=== PATIENT | male | born 1995 | race Caucasian/White ===

== ENCOUNTER 2021-11-26 18:21 | Emergency (ER) | payer MEDICAID ==
[~2021-11-26] VITALS: Ht 172.7 cm; Wt 73.0 kg
[2021-11-26] MEDS ORDERED: IBUPROFEN 400MG TABLET PO ONE (18:45)
[2021-11-26] MEDS ORDERED: IBUP-2028 MT (19:30)
[2021-11-26 19:53] VITALS: BP 134/82
== END 2021-11-26 20:00 | disposition home or self-care (01) ==
LOC: ER 18:21
DX: S93.492A Sprain of other ligament of left ankle, initial encounter (principal); R03.0 Elevated blood-pressure reading, without diagnosis of hypertension; W01.0XXA Fall on same level from slipping, tripping and stumbling without subsequent striking against object, initial encounter; Y93.01 Activity, walking, marching and hiking; Y92.480 Sidewalk as the place of occurrence of the external cause
CPT/HCPCS: 73610; 73630; 99284